=== PATIENT | male | born 1940 | race Asian ===

== ENCOUNTER → 2017-02-21 | Outpatient (CLI) | payer MEDICARE, MEDICAID ==
[~2017-02-21] MED LIST: ASPI81TA39 PO; AZEL137S8 NASAL; BACL10TA PO; CLOP75 PO; ESCI5TAB PO; FINA5TAB41 PO; FLUT16H NASAL; LORA-703 PO; MONT10TA21 PO; SIMV-260 PO; SIMV20TA6 PO; TAMS0.4C32 PO
== END | disposition home or self-care (01) ==
LOC: RADPV 10:51
PROVIDERS: ATTEND Internal Medicine
DX: J98.11 Atelectasis (principal); I70.0 Atherosclerosis of aorta; I51.7 Cardiomegaly
CPT/HCPCS: 71046

== ENCOUNTER 2017-03-11 09:29 | Emergency (ER) | payer MEDICARE, MEDICAID ==
[~2017-03-11] VITALS: Ht 165.1 cm; Wt 70.4 kg
[~2017-03-11 09:29] MED LIST changes: -ASPI81TA39 PO; -AZEL137S8 NASAL; -ESCI5TAB PO; -FLUT16H NASAL; -LORA-703 PO; -SIMV20TA6 PO
[2017-03-11] MEDS ORDERED: AZEL137S8 NASAL (09:46)
[2017-03-11] MEDS ORDERED: ESCI5TAB PO (09:46)
[2017-03-11] MEDS ORDERED: SIMV20TA6 PO (09:46)
[2017-03-11] MEDS ORDERED: FLUT16H NASAL (09:46)
[2017-03-11] MEDS ORDERED: ASPI81TA39 PO (09:46)
[2017-03-11] MEDS ORDERED: LORA-703 PO (09:46)
[2017-03-11 11:22] LABS: BASOPHILS % (AUTO) 0.6 % (0.0-2.0); HEMATOCRIT 41.4 % (41-53); HEMOGLOBIN 14.1 g/dL (13.5-17.5); LYMPHOCYTES # (AUTO) 1.5 K/uL (1.0-4.8); LYMPHOCYTES % (AUTO) 18.7 % (22.0-44.0); MEAN CORPUSCULAR HEMOGLOBIN 30.7 pg (26.0-34.0); MEAN CORPUSCULAR HGB CONC 34.1 G/dL (31.0-37.0); MEAN CORPUSCULAR VOLUME 90 fL (80-100); MONOCYTES # (AUTO) 0.8 K/uL (0.1-1.0); MONOCYTES % (AUTO) 10.6 % (2.0-9.0); NEUTROPHILS # (AUTO) 5.2 K/uL (1.8-7.7); NEUTROPHILS % (AUTO) 66.1 % (40.0-70.0); PLATELET COUNT (AUTO) 199 K/uL (150-450); RED CELL DISTRIBUTION WIDTH 13.7 % (11.5-14.5)
[2017-03-11] MEDS ORDERED: KETOROLAC TROMETHAMINE 30 MG/ML VIAL IVP ONE ×2 (11:30→11:45)
[2017-03-11 11:34] LABS: PROTHROMBIN TIME 10.8 SEC (9.4-11.6)
[2017-03-11 11:34] LABS: APPEARANCE,URINE CLEAR (CLEAR); BILIRUBIN,URINE NEGATIVE (NEGATIVE); GLUCOSE, URINE (UA) NEGATIVE (NEGATIVE); KETONES,URINE NEGATIVE (NEGATIVE); LEUKOCYTE ESTERASE ,URINE NEGATIVE (NEGATIVE); NITRATE,URINE NEGATIVE (NEGATIVE); OCCULT BLOOD,URINE MODERATE (NEGATIVE); PH,URINE 6.5 (5.0-8.0); PROTEIN,URINE NEGATIVE (NEGATIVE); UROBILINOGEN,URINE 0.2 mg/dL (<=1.0)
[2017-03-11 11:36] LABS: ANION GAP 7 mmol/L (8-16); CALCIUM, TOTAL 8.2 mg/dL (8.8-10.5); CARBON DIOXIDE 28 mmol/L (22-29); CHLORIDE 97 mmol/L (98-107); CREATININE 0.88 mg/dL (0.60-1.30); GLOMERULAR FILTR. RATE CALC > 60 mL/min (>60); GLUCOSE,RANDOM 94 mg/dL (70-110); POTASSIUM 4.6 mmol/L (3.5-5.1); SODIUM SERUM 132 mmol/L (136-145); UREA NITROGEN, BLOOD 12 mg/dL (7-18)
[2017-03-11 11:42] LABS: B-TYPE NATRIURETIC PEPTIDE 70 pg/mL (0-100)
[2017-03-11] MEDS ORDERED: KETOROLAC TROMETHAMINE 15 MG/ML VIAL IVP ONE (11:45)
[2017-03-11 11:46] LABS: BACTERIA,URINE None Seen /HPF (None Seen); SQUAMOUS EPITHELIAL CELL,UR Rare /LPF (None Seen); WBC,URINE None Seen /HPF (0-5)
[2017-03-11 11:58] LABS: ALANINE AMINOTRANSFERASE 33 U/L (12-78); ALBUMIN 3.5 g/dL (3.4-5.0); ALKALINE PHOSPHATASE 58 U/L (46-116); ASPARTATE AMINOTRANSFERASE 20 U/L (15-37); BILIRUBIN,TOTAL 0.5 mg/dL (0.1-1.0); CREATINE KINASE MB 1.1 ng/mL (0-5); CREATINE KINASE, TOTAL 95 U/L (39-308); URIC ACID 3.3 mg/dL (2.6-7.2)
[2017-03-11 13:17] VITALS: BP 148/72
== END 2017-03-11 13:32 | disposition home or self-care (01) ==
LOC: EMS 09:31
DX: M75.02 Adhesive capsulitis of left shoulder (principal); I25.10 Atherosclerotic heart disease of native coronary artery without angina pectoris; J44.9 Chronic obstructive pulmonary disease, unspecified; E78.00 Pure hypercholesterolemia, unspecified; Z79.82 Long term (current) use of aspirin
CPT/HCPCS: 36415; 71045; 73030; 80053; 81001; 82550; 82553; 83880; 84484; 84550; 85025; 85610; 85730; 93005; 96374; 99285; J1885

== ENCOUNTER 2020-06-09 10:19 | Emergency (ER) | payer MEDICAID, MEDICARE ==
[~2020-06-09] VITALS: Ht 162.6 cm; Wt 65.9 kg
[~2020-06-09 10:19] MED LIST changes: +ASPI81TA39 PO; +AZEL137S8 NASAL; -CLOP75 PO; +CLOP75TA60 PO; +ESCI5TAB PO; +FINA-27 PO; -FINA5TAB41 PO; +FLUT16H NASAL; +LORA-550 PO; +MONT-35 PO; -MONT10TA21 PO; +SIMV-43 PO; +TAMS-13 PO; -TAMS0.4C32 PO
[2020-06-09 10:21] VITALS: BP 144/81
== END 2020-06-09 11:53 | disposition home or self-care (01) ==
LOC: EMS 10:22
DX: B35.4 Tinea corporis (principal)
CPT/HCPCS: 99282; Z7502

== ENCOUNTER 2021-12-06 09:43 | Emergency (ER) | payer MEDICARE ==
[~2021-12-06] VITALS: Ht 165.1 cm; Wt 68.0 kg
[~2021-12-06 09:43] MED LIST changes: +LORA-1370 PO; -LORA-550 PO; -SIMV-43 PO
[2021-12-06 09:52] VITALS: BP 135/66
[2021-12-06] MEDS ORDERED: PredniSONE 20 MG TABLET PO ONE (12:00)
[2021-12-06] MEDS ORDERED: PRED-729 PO (12:19)
== END 2021-12-06 12:26 | disposition home or self-care (01) ==
LOC: EMS 09:49
DX: R21 Rash and other nonspecific skin eruption (principal); J44.9 Chronic obstructive pulmonary disease, unspecified; E78.00 Pure hypercholesterolemia, unspecified; Z98.890 Other specified postprocedural states
CPT/HCPCS: 99283; J7512

== ENCOUNTER 2022-01-30 11:59 | Emergency (ER) | payer MEDICARE ==
[~2022-01-30] VITALS: Ht 165.1 cm; Wt 68.2 kg
[~2022-01-30 11:59] MED LIST changes: +PRED-729 PO
[2022-01-30 12:06] VITALS: BP 118/78
[2022-01-30] MEDS ORDERED: PredniSONE 20 MG TABLET PO ONE (12:15)
[2022-01-30] MEDS ORDERED: DIPH25CA85 PO (12:19)
[2022-01-30] MEDS ORDERED: PRED-554 PO (12:19)
[2022-01-30] MEDS ORDERED: HYDR-4527 PO (12:26)
[2022-01-30] MEDS ORDERED: LATA2.5D14 OU (12:26)
[2022-01-30] MEDS ORDERED: SACU1TAB PO (12:26)
[2022-01-30] MEDS ORDERED: TRIA15CR49 TP (12:26)
[2022-01-30] MEDS ORDERED: TIOT4MIS2 IH (12:26)
== END 2022-01-30 12:36 | disposition home or self-care (01) ==
LOC: EMS 12:01
DX: L30.9 Dermatitis, unspecified (principal); E78.00 Pure hypercholesterolemia, unspecified; J44.9 Chronic obstructive pulmonary disease, unspecified; Z98.890 Other specified postprocedural states
CPT/HCPCS: 99283; J7512

== ENCOUNTER 2022-08-04 00:03 | Inpatient (IN) | payer MEDICARE ==
[2022-08-04] VITALS (12 sets, daily range): BP systolic 107–129; BP diastolic 54–71; PULSE 62–99; RESP 14–26; TEMP 98.2–98.7; O2SAT 60–100
[~2022-08-04] VITALS: Ht 165.1 cm; Wt 69.0 kg
[~2022-08-04 00:03] MED LIST changes: +DIPH25CA85 PO; +HYDR-4527 PO; +LATA2.5D14 OU; +PRED-554 PO; -PRED-729 PO; +SACU1TAB PO; +TIOT4MIS2 IH; +TRIA15CR49 TP
[2022-08-04] MEDS ORDERED: MethylPREDNISolone SOD SUCC 125 MG/2 ML VIAL IVP ONE (00:15)
[2022-08-04] MEDS ORDERED: IPRATROPIUM BROMIDE 0.5 MG/2.5 ML NEB SOLUTION NEB ONE (00:15)
[2022-08-04] MEDS ORDERED: ALBUTEROL SULFATE 2.5 MG/0.5 ML NEB SOLUTION NEB ONE (00:15)
[2022-08-04] MEDS ORDERED: NITROGLYCERIN 2% (1 GM=INCH) OINTMENT PACKET TP ONE (00:30)
[2022-08-04 00:38] LABS: BASOPHILS % (AUTO) 0.4 % (0.0-2.0); HEMATOCRIT 38.8 % (41-53); LYMPHOCYTES # (AUTO) 1.2 K/uL (1.0-4.8); LYMPHOCYTES % (AUTO) 12.9 % (22.0-44.0); MEAN CORPUSCULAR HEMOGLOBIN 29.9 pg (26.0-34.0); MEAN CORPUSCULAR HGB CONC 33.4 G/dL (31.0-37.0); MEAN CORPUSCULAR VOLUME 90 fL (80-100); MONOCYTES # (AUTO) 0.6 K/uL (0.1-1.0); MONOCYTES % (AUTO) 6.2 % (2.0-9.0); NEUTROPHILS # (AUTO) 7.1 K/uL (1.8-7.7); NEUTROPHILS % (AUTO) 77.5 % (40.0-70.0); PLATELET COUNT (AUTO) 151 K/uL (150-450); RED BLOOD CELL COUNT(AUTO) 4.34 MIL/uL (4.50-5.90); RED CELL DISTRIBUTION WIDTH 14.1 % (11.5-14.5)
[2022-08-04] MEDS ORDERED: FUROSEMIDE 40 MG/4 ML VIAL IVP ONE (00:45)
[2022-08-04 00:46] LABS: CALCIUM, TOTAL 8.1 mg/dL (8.8-10.5); CREATININE 1.21 mg/dL (0.60-1.30); POTASSIUM 4.1 mmol/L (3.5-5.1)
[2022-08-04 00:53] LABS: ALBUMIN 3.1 g/dL (3.4-5.0); BILIRUBIN,TOTAL 0.6 mg/dL (0.1-1.0)
[2022-08-04 03:03] LABS: APPEARANCE,URINE CLEAR (CLEAR); BILIRUBIN,URINE NEGATIVE (NEGATIVE); GLUCOSE, URINE (UA) NEGATIVE (NEGATIVE); KETONES,URINE NEGATIVE (NEGATIVE); LEUKOCYTE ESTERASE ,URINE NEGATIVE (NEGATIVE); NITRATE,URINE NEGATIVE (NEGATIVE); OCCULT BLOOD,URINE TRACE (NEGATIVE); PROTEIN,URINE NEGATIVE (NEGATIVE); SPECIFIC GRAVITIY, URINE 1.007 (1.003-1.030); UROBILINOGEN,URINE <=1.0 mg/dL (<=1.0)
[2022-08-04 03:12] LABS: BACTERIA,URINE None Seen /HPF (None Seen); RBC,URINE 0-2 /HPF (0-2); SQUAMOUS EPITHELIAL CELL,UR None Seen /LPF (None Seen); WBC,URINE None Seen /HPF (0-5)
[2022-08-04] MEDS ORDERED: NITROGLYCERIN 0.4 MG SUBLINGUAL TABLET #25 SL PRN (07:45)
[2022-08-04] MEDS: ALBUTEROL SULFATE 2.5 MG/0.5 ML NEB SOLUTION NEB SCH ×3 (08:00→23:48)
[2022-08-04] MEDS: IPRATROPIUM BROMIDE 0.5 MG/2.5 ML NEB SOLUTION NEB SCH ×3 (08:00→23:48)
[2022-08-04] MEDS ORDERED: IPRATROPIUM BROMIDE 0.5 MG/2.5 ML NEB SOLUTION NEB PRN (08:00)
[2022-08-04] MEDS ORDERED: ALBUTEROL SULFATE 2.5 MG/0.5 ML NEB SOLUTION NEB PRN (08:00)
[2022-08-04] MEDS ORDERED: PANTOPRAZOLE SODIUM 40 MG DR TABLET PO SCH (09:00)
[2022-08-04] MEDS: FUROSEMIDE 20 MG/2 ML VIAL IVP SCH ×2 (10:07→20:15)
[2022-08-04] MEDS: ASPIRIN 81 MG CHEWABLE TABLET PO SCH (10:08)
[2022-08-04] MEDS: ATORVASTATIN CALCIUM 40 MG TABLET PO SCH (10:08)
[2022-08-04] MEDS: CLOPIDOGREL BISULFATE 75 MG TABLET PO SCH (10:08)
[2022-08-04] MEDS ORDERED: BISACODYL 10 MG RECTAL RECTAL SUPPOSITORY PR PRN (10:30)
[2022-08-04] MEDS ORDERED: ACETAMINOPHEN 325 MG TABLET PO PRN (10:30)
[2022-08-04] MEDS ORDERED: MAGNESIUM HYDROXIDE SUSPENSION 30 ML UDCUP PO PRN (10:30)
[2022-08-04] MEDS ORDERED: MORPHINE SULFATE 2 MG/ML SYRINGE IVP PRN (10:30)
[2022-08-04] MEDS ORDERED: HYDROCODONE/ACETAMINOPHEN 5-325 MG TABLET PO PRN (10:30)
[2022-08-04] MEDS ORDERED: ONDANSETRON HCL 4 MG/2 ML VIAL IVP PRN (10:30)
[2022-08-04] MEDS ORDERED: ZOLPIDEM TARTRATE 5 MG TABLET PO PRN (10:30)
[2022-08-04 11:03] LABS: ABG BASE EXCESS 2.9 mmol/L (-2.0-3.0); ABG METHEMOGLOBIN 0.3 % (0.0-1.5); ABG OXYGEN CONTENT 18.7 mL/dL (15.0-23.0); ABG OXYHEMOGLOBIN 94.8 % (94.0-100.0); ABG PCO2 39 mmHg (35-45); ABG PH 7.459 (7.35-7.450); SOURCE, BLOOD GAS ARTERIAL; TEMPERATURE, FAHRENHEIT, BG 98.8 FAHREN (96.0-98.6)
[2022-08-04 11:05] LABS: O2 DEVICE,BLOOD GAS CANNULA (ROOM AIR); SITE, BLOOD GAS RT RADIAL
[2022-08-04] MEDS ORDERED: SODIUM CHLORIDE 0.9% 250 ML IV ONE (12:02)
[2022-08-04] MEDS: CefTRIAXone 1 GM/DEXTROSE 50 ML IV SCH (12:06)
[2022-08-04] MEDS: AZITHROMYCIN 500 MG/NS 250 ML IV SCH (12:06)
[2022-08-04] MEDS: MethylPREDNISolone SOD SUCC 125 MG/2 ML VIAL IVP SCH ×2 (12:08→18:02)
[2022-08-04] MEDS: HEPARIN SODIUM,PORCINE 5,000 UNITS/ML VIAL SQ SCH (18:01)
[2022-08-04] MEDS: DOCUSATE SODIUM 100 MG CAPSULE PO SCH (20:15)
[2022-08-04] MEDS: BUDESONIDE 0.5 MG/2 ML NEB SOLUTION NEB SCH (20:41)
[2022-08-05] VITALS (12 sets, daily range): BP systolic 104–143; BP diastolic 62–85; PULSE 60–87; RESP 12–18; TEMP 97.5–98.3; O2SAT 97–100
[2022-08-05] MEDS: MethylPREDNISolone SOD SUCC 125 MG/2 ML VIAL IVP SCH ×3 (00:08→20:04)
[2022-08-05] MEDS: HEPARIN SODIUM,PORCINE 5,000 UNITS/ML VIAL SQ SCH ×4 (00:09→23:20)
[2022-08-05 05:54] LABS: BASOPHILS % (AUTO) 0.1 % (0.0-2.0); EOSINOPHILS % (AUTO) 0 % (1.0-6.0); HEMOGLOBIN 12.7 g/dL (13.5-17.5); LYMPHOCYTES # (AUTO) 0.6 K/uL (1.0-4.8); LYMPHOCYTES % (AUTO) 7.6 % (22.0-44.0); MEAN CORPUSCULAR HEMOGLOBIN 30.3 pg (26.0-34.0); MEAN CORPUSCULAR HGB CONC 34.4 G/dL (31.0-37.0); MEAN CORPUSCULAR VOLUME 88 fL (80-100); MONOCYTES # (AUTO) 0.5 K/uL (0.1-1.0); MONOCYTES % (AUTO) 6.3 % (2.0-9.0); NEUTROPHILS # (AUTO) 6.2 K/uL (1.8-7.7); PLATELET COUNT (AUTO) 155 K/uL (150-450); RED BLOOD CELL COUNT(AUTO) 4.19 MIL/uL (4.50-5.90); RED CELL DISTRIBUTION WIDTH 13.9 % (11.5-14.5)
[2022-08-05 06:19] LABS: CALCIUM, TOTAL 7.8 mg/dL (8.8-10.5); CREATININE 1.24 mg/dL (0.60-1.30); POTASSIUM 3.7 mmol/L (3.5-5.1)
[2022-08-05] MEDS: IPRATROPIUM BROMIDE 0.5 MG/2.5 ML NEB SOLUTION NEB SCH ×2 (07:47→15:52)
[2022-08-05] MEDS: ALBUTEROL SULFATE 2.5 MG/0.5 ML NEB SOLUTION NEB SCH ×2 (07:47→15:52)
[2022-08-05] MEDS: BUDESONIDE 0.5 MG/2 ML NEB SOLUTION NEB SCH (08:00)
[2022-08-05] MEDS: CLOPIDOGREL BISULFATE 75 MG TABLET PO SCH (08:39)
[2022-08-05] MEDS: ATORVASTATIN CALCIUM 40 MG TABLET PO SCH (08:39)
[2022-08-05] MEDS: FUROSEMIDE 20 MG/2 ML VIAL IVP SCH (08:39)
[2022-08-05] MEDS: DOCUSATE SODIUM 100 MG CAPSULE PO SCH ×2 (08:39→20:04)
[2022-08-05] MEDS: ASPIRIN 81 MG CHEWABLE TABLET PO SCH (08:39)
[2022-08-05] MEDS: PANTOPRAZOLE SODIUM 40 MG DR TABLET PO SCH (08:39)
[2022-08-05] MEDS: FUROSEMIDE 20 MG TABLET PO SCH (09:00)
[2022-08-05] MEDS: SACUBITRIL/VALSARTAN 24-26 MG TABLET PO SCH ×2 (09:00→20:04)
[2022-08-05] MEDS: CefTRIAXone 1 GM/DEXTROSE 50 ML IV SCH (14:14)
[2022-08-05] MEDS: AZITHROMYCIN 500 MG/NS 250 ML IV SCH (14:56)
[2022-08-05] MEDS: METOPROLOL SUCCINATE 25 MG ER TABLET PO SCH (16:17)
[2022-08-05] MEDS: GuaiFENesin [SUGAR-FREE] 200 MG/10 ML SOLUTION UDCUP PO SCH ×2 (16:17→23:20)
[2022-08-06] MEDS: IPRATROPIUM BROMIDE 0.5 MG/2.5 ML NEB SOLUTION NEB SCH ×2 (00:09→07:26)
[2022-08-06] MEDS: ALBUTEROL SULFATE 2.5 MG/0.5 ML NEB SOLUTION NEB SCH ×2 (00:09→07:26)
[2022-08-06] MEDS: BUDESONIDE 0.5 MG/2 ML NEB SOLUTION NEB SCH (00:10)
[2022-08-06 00:13] VITALS: PULSE 63; RESP 17; O2SAT 97
[2022-08-06 00:14] VITALS: PULSE 63; RESP 17; O2SAT 97
[2022-08-06 03:36] VITALS: BP 113/68; PULSE 59; RESP 17; TEMP 97.7
[2022-08-06 06:28] LABS: EOSINOPHILS % (AUTO) 0 % (1.0-6.0); HEMATOCRIT 35.3 % (41-53); HEMOGLOBIN 11.9 g/dL (13.5-17.5); LYMPHOCYTES # (AUTO) 0.6 K/uL (1.0-4.8); LYMPHOCYTES % (AUTO) 5.3 % (22.0-44.0); MEAN CORPUSCULAR HEMOGLOBIN 29.8 pg (26.0-34.0); MEAN CORPUSCULAR HGB CONC 33.6 G/dL (31.0-37.0); MEAN CORPUSCULAR VOLUME 89 fL (80-100); MONOCYTES # (AUTO) 0.6 K/uL (0.1-1.0); NEUTROPHILS # (AUTO) 9.4 K/uL (1.8-7.7); PLATELET COUNT (AUTO) 145 K/uL (150-450); RED BLOOD CELL COUNT(AUTO) 3.98 MIL/uL (4.50-5.90); RED CELL DISTRIBUTION WIDTH 13.8 % (11.5-14.5)
[2022-08-06 06:29] LABS: NEUTROPHILS % (AUTO) 88.7 % (40.0-70.0)
[2022-08-06 06:45] LABS: ANION GAP 5 mmol/L (8-16); CALCIUM, TOTAL 7.7 mg/dL (8.8-10.5); CARBON DIOXIDE 32 mmol/L (22-29); CHLORIDE 98 mmol/L (98-107); CREATININE 0.97 mg/dL (0.60-1.30); GLOMERULAR FILTR. RATE CALC > 60 mL/min (>60); GLUCOSE,RANDOM 166 mg/dL (70-110); POTASSIUM 3.7 mmol/L (3.5-5.1); SODIUM SERUM 135 mmol/L (136-145)
[2022-08-06 07:00] VITALS: PULSE 70; RESP 16; RESP 18; O2SAT 96
[2022-08-06] MEDS: HEPARIN SODIUM,PORCINE 5,000 UNITS/ML VIAL SQ SCH (08:00)
[2022-08-06 08:09] VITALS: BP 119/56; PULSE 59; RESP 18; TEMP 98
[2022-08-06] MEDS: ATORVASTATIN CALCIUM 40 MG TABLET PO SCH (08:57)
[2022-08-06] MEDS: FUROSEMIDE 20 MG TABLET PO SCH (08:57)
[2022-08-06] MEDS: ASPIRIN 81 MG CHEWABLE TABLET PO SCH (08:58)
[2022-08-06] MEDS: SACUBITRIL/VALSARTAN 24-26 MG TABLET PO SCH (08:58)
[2022-08-06] MEDS: PANTOPRAZOLE SODIUM 40 MG DR TABLET PO SCH (08:58)
[2022-08-06] MEDS: DOCUSATE SODIUM 100 MG CAPSULE PO SCH (08:58)
[2022-08-06] MEDS: CLOPIDOGREL BISULFATE 75 MG TABLET PO SCH (08:58)
[2022-08-06] MEDS: MethylPREDNISolone SOD SUCC 125 MG/2 ML VIAL IVP SCH (08:58)
[2022-08-06] MEDS: GuaiFENesin [SUGAR-FREE] 200 MG/10 ML SOLUTION UDCUP PO SCH (08:58)
[2022-08-06] MEDS: METOPROLOL SUCCINATE 25 MG ER TABLET PO SCH (09:00)
[2022-08-06] MEDS ORDERED: FLUT1BLS IH (10:27)
[2022-08-06] MEDS ORDERED: FURO20 PO (10:27)
[2022-08-06] MEDS ORDERED: ATOR40TA71 PO (10:27)
[2022-08-06] MEDS ORDERED: TIOT4MIS2 IH (10:27)
[2022-08-06] MEDS ORDERED: METO25XL PO (10:27)
[2022-08-06] MEDS ORDERED: ASPI81 PO (10:27)
[2022-08-06] MEDS ORDERED: PRED-554 PO (10:27)
[2022-08-06] MEDS ORDERED: FLUT16H NASAL (10:27)
[2022-08-06 11:22] VITALS: BP 124/73; PULSE 65; RESP 18; TEMP 98.1
== END 2022-08-06 11:50 | disposition home or self-care (01) | DRG 291 ==
LOC: EMS 00:06 → ICU 07:00 → 5S 08-05 10:45
PROVIDERS: ADMIT Internal Medicine; ATTEND Internal Medicine
PROC: 5A09357 Assistance with Respiratory Ventilation, Less than 24 Consecutive Hours, Continuous Positive Airway Pressure (ICD-10-PCS; principal; 2022-08-04)
DX: I11.0 Hypertensive heart disease with heart failure (principal); I50.43 Acute on chronic combined systolic (congestive) and diastolic (congestive) heart failure; J96.21 Acute and chronic respiratory failure with hypoxia; J44.1 Chronic obstructive pulmonary disease with (acute) exacerbation; I25.10 Atherosclerotic heart disease of native coronary artery without angina pectoris; I44.7 Left bundle-branch block, unspecified; E78.00 Pure hypercholesterolemia, unspecified; F17.210 Nicotine dependence, cigarettes, uncomplicated; I25.2 Old myocardial infarction; Z79.02 Long term (current) use of antithrombotics/antiplatelets; Z79.82 Long term (current) use of aspirin; Z79.899 Other long term (current) drug therapy; Z82.49 Family history of ischemic heart disease and other diseases of the circulatory system; Z95.5 Presence of coronary angioplasty implant and graft
CPT/HCPCS: 71045; 71250; 80048; 80053; 81001; 82550; 82805; 83880; 84484; 85025; 85379; 87040; 87077; 87081; 87205; 93005; 93306; 94640; 94660; 99291; G0378; J0456; J0696; J1644; J1940; J2930; J7050; Q9967; 36415-L1; 36415-TC; J7613